=== PATIENT | female | born 2000 | race Two or more races ===

== ENCOUNTER 2020-06-13 14:35 | Outpatient (REF) | payer OTHER, SELFPAY ==
[2020-06-13 15:07] LABS: COVID-19 Test Negative (Negative)
== END 2020-06-13 14:36 | disposition home or self-care (01) ==
LOC: HO.EMPCOV 14:35
PROVIDERS: Visit Provider Internal Medicine
DX: Z20.828 Contact with and (suspected) exposure to other viral communicable diseases (principal)
CPT/HCPCS: 87635

== ENCOUNTER 2020-06-17 09:50 | Outpatient (REF) | payer OTHER, SELFPAY ==
[2020-06-17 11:30] LABS: COVID-19 Test Negative (Negative)
== END 2020-06-17 09:51 | disposition home or self-care (01) ==
LOC: HO.LAB 09:50
PROVIDERS: Visit Provider Internal Medicine
DX: Z20.828 Contact with and (suspected) exposure to other viral communicable diseases (principal)
CPT/HCPCS: 87635

== ENCOUNTER 2020-08-12 14:42 | Outpatient (REF) | payer OTHER, SELFPAY ==
[2020-08-12 15:23] LABS: COVID-19 Test Negative (Negative)
== END 2020-08-12 14:43 | disposition home or self-care (01) ==
LOC: HO.EMPCOV 14:42
PROVIDERS: Visit Provider Internal Medicine
DX: Z20.828 Contact with and (suspected) exposure to other viral communicable diseases (principal)
CPT/HCPCS: 87635; C9803

== ENCOUNTER 2020-09-12 12:34 | Outpatient (REF) | payer OTHER, SELFPAY ==
[2020-09-12 13:06] LABS: COVID-19 Test Negative (Negative)
== END 2020-09-12 12:35 | disposition home or self-care (01) ==
LOC: HO.LAB 12:34
PROVIDERS: Visit Provider Internal Medicine
DX: Z20.822 Contact with and (suspected) exposure to COVID-19 (principal)
CPT/HCPCS: 36415; 87635; C9803

== ENCOUNTER 2021-02-07 15:20 | Emergency (ER) | payer OTHER, SELFPAY ==
--- NOTE | ~2021-02-07 | CT_ITS ---
EXAMINATION: CT angio head neck CLINICAL INFORMATION: Right eye blurry vision. Headache. Left lower extremity tingling. COMPARISON: No relevant prior imaging. TECHNIQUE: Herpetology Teacher images were obtained. A CT angiogram of the head and neck was performed in the arterial phase after the intravenous administration of 50 mL Omnipaque 350. Pre and delayed postcontrast images of the head were also obtained. MIP reconstructions were generated in multiple orientations at the acquisition workstation. Multiple three-dimensional surface rendered images and maximum intensity projection images were generated on a dedicated 3-D lab workstation. Arterial stenoses are measured in accordance with NASCET criteria or similar method if applicable. This CT examination was performed using dose optimization techniques as appropriate, including one or more of the following: Automated exposure control, iterative reconstruction, and adjustment of technique factors (mA and/or kVp) according to patient size (this includes techniques or standardized protocols for targeted exams where dose is matched to indication/reason for exam). Total exam dose-length product 2161 mGy-cm FINDINGS: Head: There is no acute intracranial hemorrhage or abnormal extra-axial collection. Postcontrast images reveal no abnormal mass or enhancement within the intracranial compartment. No intracranial mass effect or midline shift. Lateral and third ventricles are normal. No hydrocephalus. Nicole-white matter differentiation is preserved and there is no evidence of acute territorial infarct. CT angiogram neck: The aortic arch apex is normal. Origins of the major aortic branches are widely patent. Common carotid arteries and the carotid bifurcations are normal. No stenosis of the extracranial internal carotid arteries. The cervical segments of the vertebral arteries as well as their origins are patent. CT angiogram head: Intracranial internal carotid arteries are patent. The intradural vertebral artery segments and basilar artery are patent. Anterior, middle, and posterior cerebral artery complexes are normal. No high-grade stenosis or proximal occlusion is visualized within the intracranial vessels. Other: Soft tissues of the neck including the thyroid gland are normal. Visualized lung apices are clear. No acute osseous finding. CT/CT angio head neck IMPRESSION: Normal CT angiogram of the head and neck.
[2021-02-07 15:36] VITALS: BP 132/81; PULSE 90; RESP 6; TEMP 36.6; O2SAT 100; BMI 24.0
--- NOTE | 2021-02-07 16:10 | ED.HA ---
HPI - Headache General Chief Complaint: Headache Stated Complaint: blurred vision Time Seen by Provider: 02/07/21 15:55 Source: patient Mode of arrival: ambulatory History of Present Illness HPI Narrative: 20-year-old female with significant PMHx presenting to the ED c/o sudden onset blurry vision in inferior portion of right eye s/p after driving home from the gym, then associated pounding frontal headache, nausea, and left lower extremity tingling. Admits blurry vision lasted about 25 minutes, is resolved at present, still with continued headache, nausea, and not feeling right. Admits to taking oral OCPs and recently traveled to [place] last week. Denies vomiting, diarrhea, CP/SOB, focal weakness, fever Related Data Allergies Allergy/AdvReac Type Severity Reaction Status Date / Time No Known Allergies Allergy Verified 02/07/21 15:40 Review of Systems Review of Systems: Constitutional: No Fever, No Chills, No Fatigue, No Malaise ENT/Mouth: No Hearing loss, No Ear Pain, No sore throat, No Swallowing Difficulty Eyes: No Eye Pain, No Swelling, No Discharge, + Vision Changes Cardiovascular: No Chest Pain, No SOB, No Edema Respiratory: No Cough, No Dyspnea Gastrointestinal: + Nausea, No Vomiting, No Diarrhea, No Constipation, No Abdominal pain Musculoskeletal: No joint pain, No Myalgias, No Joint Swelling Skin: No Skin Lesions, No rash Neuro: No Weakness, No Numbness, + Paresthesias, + Headache Yes all other systems are reviewed and are negative Neurologic: Denies Abnormal speech present [facility] Past Medical History Attestation statement: The following information was validated with the patient. Medical History (Updated 02/07/21 @ 18:31 by CRIS Grover) No known health problems Surgical History (Updated 02/07/21 @ 15:39 by Ruddy Walker) H/O unilateral oophorectomy Social History Social History Advance Directives: No Advance Directives Information Provided: No Patient : No Physical Exam Vital Signs: Vital Signs: Last Vital Signs Temp 98 F 02/07/21 15:36 Pulse 90 02/07/21 15:36 Resp 6 L 02/07/21 15:36 BP 132/81 02/07/21 15:36 Pulse Ox 100 02/07/21 15:36 Body Mass Index 24.0 Const: General: cooperative, healthy appearing, no acute distress, well developed, alert and awake Orientation/consciousness: patient oriented x3 Limitations: no limitations HENMT: Head: Yes normal to inspection and Yes atraumatic Ears: hearing grossly normal bilaterally General nose exam: Normal external nose present Face and sinus: Yes normal facial exam Mouth: Normal oral and palatal mucosa present Throat: Yes posterior oropharynx normal and Yes uvula midline Eyes: General: appearance normal, both eyes and all related structures Pupils: Equal, round and reactive pupils present EOM: EOMs intact bilaterally Neck: Neck: Yes normal visual inspection and Yes no meningeal signs Resp: Effort & Inspection: normal respiratory effort Auscultation: clear to auscultation bilaterally, no crackles and no wheezes Cardio: Rate: regular rate Heart sounds: S1 normal heart sound present and S2 normal heart sound present GI: Inspection: Yes normal to inspection Palpation (GI): Soft to palpation, nontender, no guarding and not rigid Skin: Rashes: no rashes Wounds: no wounds Neuro: General: patient oriented x3, gait normal, tone normal, moves all extremities, no meningeal signs, no focal motor deficits and CN's II-XI intact bilaterally Cranial nerves: Yes CN's II-XII intact bilaterally and Yes Equal, round and reactive pupils present Cognition (Neuro): normal cognition Speech: No Abnormal speech present Gait exam (Neuro): Normal gait present Motor exam (neuro): 5/5 motor strength present throughout, Pronator motor function not present and no tremor noted Coordination: [id number] test normal Romberg Test: Negative Extrem: General: Yes normal to inspection Course Course Course Narrative: -mild leukocytosis of 12.6 CT angio head neck IMPRESSION: Normal CT angiogram of the head and neck. >> results discussed with patient including worrisome signs and symptoms and strict return precautions. She verbalized understanding feel safe for discharge home. Is to follow up with PCP MDM - Headache MDM Narrative Medical decision making narrative: 20-year-old female with significant PMHx presenting to the ED c/o sudden onset blurry vision in inferior portion of right eye s/p after driving home from the gym, then associated pounding frontal headache, nausea, and left lower extremity tingling. Admits blurry vision lasted about 25 minutes, is resolved at present, still with continued headache, nausea, and not feeling right. On exam vital signs stable, NAD, nontoxic appearing, no focal neuro deficits. Concern for complicated migraine headache vs CVT vs less likely cervical dissection. Plan: Labs, UA, head CT, CTA head and neck Lab Data Result diagrams: 02/07/21 16:23 02/07/21 16:23 Labs: Lab Results 02/07/21 02/07/21 02/07/21 Range/Units 16:23 16:23 16:23 WBC 12.6 H (4.8-10.8) X10*3/uL RBC 4.46 (4.20-5.50) X10*6/uL Hgb 13.7 (12.0-16.0) g/dl Hct 41.2 (37-47) % MCV 92.4 (80-98) fL MCH 30.7 (27.0-33.0) pg MCHC 33.3 (31.0-35.0) g/dl RDW 11.6 (11.0-16.0) % Plt Count 297 (160-400) X10*3/uL MPV 9.3 L (9.4-12.3) fL Immature Gran % (Auto) 0.3 (0.0-0.4) % Neut % (Auto) 80.4 H (45-73) % Lymph % (Auto) 12.9 L (20-40) % [place] % (Auto) 5.5 (2-11) % Eos % (Auto) 0.5 (0-4) % Baso % (Auto) 0.4 (0-2) % Lymph # (Auto) 1.6 (1.2-4.9) X10*3/uL [place] # (Auto) 0.7 (0.1-1.2) X10*3/uL Eos # (Auto) 0.1 (0.0-0.4) X10*3/uL Baso # (Auto) 0.1 (0.0-0.2) X10*3/uL Abs Immat Gran (auto) 0.04 H (0.00-0.03) X10*3/uL Absolute Neuts (auto) 10.1 H (2.0-8.3) X10*3/uL Absolute Nucleated RBC 0.000 (0.0-0.012) X10*3/uL Nucleated RBC % (auto) 0.0 (0.0-0.2) /100WBC Sodium 138 (135-145) mmol/L Potassium 3.5 (3.3-5.1) mmol/L Chloride 104 (96-108) mmol/L Carbon Dioxide 24 (22-29) mmol/L Anion Gap 14 (12-20) BUN 11 (9-16) mg/dL Creatinine 0.80 (0.5-1.4) mg/dL Estim Creat Clear Calc 95.2 Estimated GFR > 60 Random Glucose 91 (60-115) mg/dL Calcium 9.0 (8.4-10.2) mg/dL Magnesium 1.9 (1.6-2.6) mg/dL Total Bilirubin 0.3 (0.0-1.0) mg/dL Direct Bilirubin < 0.2 (0.0-0.5) mg/dL AST 18 (5-31) U/L ALT 9 (0-31) U/L Alkaline Phosphatase 55 (39-117) U/L Total Protein 7.3 (6.5-8.0) g/dL Albumin 4.2 (3.5-5.0) g/dL Urine Color YELLOW Urine Appearance CLEAR Urine pH 6.0 (5.0-8.0) Ur Specific [place] <= 1.005 (1.005-1.025) Urine Protein NEG (NEG-TRACE) MG/DL Urine Glucose (UA) NEG (NEG) MG/DL Urine Ketones NEG (NEG) MG/DL Urine Blood 2+ H (NEG) Urine Nitrite NEG (NEG) Ur Leukocyte Esterase TRACE H (NEG) Urine RBC 0-2 (0) /HPF Urine WBC 0-2 (0-4) /HPF Ur Squamous Epith Cells TRACE /LPF Urine Bacteria TRACE /LPF Urine Test (NEGATIVE) 02/07/21 Range/Units 16:23 WBC (4.8-10.8) X10*3/uL RBC (4.20-5.50) X10*6/uL Hgb (12.0-16.0) g/dl Hct (37-47) % MCV (80-98) fL MCH (27.0-33.0) pg MCHC (31.0-35.0) g/dl RDW (11.0-16.0) % Plt Count (160-400) X10*3/uL MPV (9.4-12.3) fL Immature Gran % (Auto) (0.0-0.4) % Neut % (Auto) (45-73) % Lymph % (Auto) (20-40) % [place] % (Auto) (2-11) % Eos % (Auto) (0-4) % Baso % (Auto) (0-2) % Lymph # (Auto) (1.2-4.9) X10*3/uL [place] # (Auto) (0.1-1.2) X10*3/uL Eos # (Auto) (0.0-0.4) X10*3/uL Baso # (Auto) (0.0-0.2) X10*3/uL Abs Immat Gran (auto) (0.00-0.03) X10*3/uL Absolute Neuts (auto) (2.0-8.3) X10*3/uL Absolute Nucleated RBC (0.0-0.012) X10*3/uL Nucleated RBC % (auto) (0.0-0.2) /100WBC Sodium (135-145) mmol/L Potassium (3.3-5.1) mmol/L Chloride (96-108) mmol/L Carbon Dioxide (22-29) mmol/L Anion Gap (12-20) BUN (9-16) mg/dL Creatinine (0.5-1.4) mg/dL Estim Creat Clear Calc Estimated GFR Random Glucose (60-115) mg/dL Calcium (8.4-10.2) mg/dL Magnesium (1.6-2.6) mg/dL Total Bilirubin (0.0-1.0) mg/dL Direct Bilirubin (0.0-0.5) mg/dL AST (5-31) U/L ALT (0-31) U/L Alkaline Phosphatase (39-117) U/L Total Protein (6.5-8.0) g/dL Albumin (3.5-5.0) g/dL Urine Color Urine Appearance Urine pH (5.0-8.0) Ur Specific [place] (1.005-1.025) Urine Protein (NEG-TRACE) MG/DL Urine Glucose (UA) (NEG) MG/DL Urine Ketones (NEG) MG/DL Urine Blood (NEG) Urine Nitrite (NEG) Ur Leukocyte Esterase (NEG) Urine RBC (0) /HPF Urine WBC (0-4) /HPF Ur Squamous Epith Cells /LPF Urine Bacteria /LPF Urine Test NEGATIVE (NEGATIVE) Discharge Plan Discharge Clinical Impression: Headache, Vision changes Patient Disposition: Home, Self-Care Instructions: Acute Headache (ED) Additional Instructions: Your blood work and imaging studies were reassuring/unremarkable today in the ED. It is important that he follow up with her primary care doctor Follow-up with neurology as needed If her symptoms recur, persist, worsen, you develop constant persistent symptoms, headache, weakness, chest pain or shortness of breath please return to the ED immediately Referrals: Physician,None [Primary Care Provider] - 2 days Karen Lemons MD [Physician] - 2 days
[2021-02-07 16:30] LABS: MANUAL DIFF FLAG NO
[2021-02-07] MEDS: Acetaminophen 325 MG TABLET 650 MG PO (16:30)
[2021-02-07] MEDS: Metoclopramide HCl 10 MG/2 ML VIAL IVPUSH (16:31)
[2021-02-07] MEDS: 0.9 % Sodium Chloride 1,000 ML 999 ML IVCONT (16:31)
[2021-02-07 16:33] LABS: Basophils Absolute Auto 0.1 X10*3/uL (0.0-0.2); Basophils Percent Auto 0.4 % (0-2); Eosinophils Absolute Auto 0.1 X10*3/uL (0.0-0.4); Eosinophils Percent Auto 0.5 % (0-4); Hematocrit 41.2 % (37-47); Hemoglobin 13.7 g/dl (12.0-16.0); Imm Gran Abs Auto 0.04 X10*3/uL (0.00-0.03); Imm Gran Pct Auto 0.3 % (0.0-0.4); Lymphocytes Absolute Auto 1.6 X10*3/uL (1.2-4.9); Lymphocytes Percent Auto 12.9 % (20-40); Mean Corpuscular HGB Conc 33.3 g/dl (31.0-35.0); Mean Corpuscular Hemoglobin 30.7 pg (27.0-33.0); Mean Corpuscular Volume 92.4 fL (80-98); Mean Platelet Volume 9.3 fL (9.4-12.3); Monocytes Absolute Auto 0.7 X10*3/uL (0.1-1.2); Monocytes Percent Auto 5.5 % (2-11); Neutrophils Absolute Auto 10.1 X10*3/uL (2.0-8.3); Neutrophils Percent Auto 80.4 % (45-73); Platelet Count 297 X10*3/uL (160-400); Red Blood Count 4.46 X10*6/uL (4.20-5.50); Red Cell Distribution Width 11.6 % (11.0-16.0); White Blood Count 12.6 X10*3/uL (4.8-10.8)
[2021-02-07 16:41] LABS: Glucose Urine UA NEG (NEG); Leukocyte Esterase Urine TRACE (NEG); Nitrite Urine NEG (NEG); Specific Gravity - Urine <= 1.005 (1.005-1.025); UACC Culture Trigger YES; Urine Blood 2+ (NEG); Urine Ketones NEG (NEG); Urine Protein NEG (NEG-TRACE)
[2021-02-07 16:43] LABS: UPreg QC Valid YES; Urine Pregnancy NEGATIVE (NEGATIVE)
[2021-02-07 16:44] LABS: Appearance Urine CLEAR; Color Urine YELLOW
[2021-02-07 16:55] LABS: Bacteria Urine TRACE /LPF; RBC Urine 0-2 /HPF (0); Squamous Epithelial Cell Urine TRACE /LPF; WBC Urine 0-2 /HPF (0-4)
[2021-02-07 17:00] LABS: Alanine Aminotransferase 9 U/L (0-31); Albumin Level 4.2 g/dL (3.5-5.0); Alkaline Phosphatase 55 U/L (39-117); Anion Gap 14 (12-20); Aspartate Amino Transferase 18 U/L (5-31); Bilirubin Direct < 0.2 mg/dL (0.0-0.5); Bilirubin Total 0.3 mg/dL (0.0-1.0); Blood Urea Nitrogen 11 mg/dL (9-16); Carbon Dioxide 24 mmol/L (22-29); Chloride 104 mmol/L (96-108); Creatinine Clr Calc Pharmacy 95.2; Estimated Glomerular Filt Rate > 60; Glucose Random 91 mg/dL (60-115); Magnesium 1.9 mg/dL (1.6-2.6); Potassium 3.5 mmol/L (3.3-5.1); Sodium 138 mmol/L (135-145); Total Protein 7.3 g/dL (6.5-8.0)
[2021-02-07] MEDS: iohexoL 350 MG/ML 100 ML INFUS..BTL 70 ML IV (17:40)
== END 2021-02-07 18:41 | disposition home or self-care (01) ==
PROVIDERS: Physician Assistant; Emergency Provider Emergency Medicine
DX: R51.9 Headache, unspecified (principal); H53.8 Other visual disturbances
CPT/HCPCS: 36415; 70496; 70498; 80048; 80076; 81001; 81003; 81025; 83735; 85025; 87086; 96361; 96374; 99284; J2765; Q9967

== ENCOUNTER 2021-04-04 12:22 | Outpatient (REF) | payer OTHER, SELFPAY | END 2021-04-04 12:23 | disposition home or self-care (01) | LOC: HO.EMPCOV 12:22 | PROVIDERS: Visit Provider Physician Assistant Medical | DX: Z13.89 Encounter for screening for other disorder (principal) ==